=== PATIENT | female | born 1970 | race Caucasian/White ===

== ENCOUNTER → 2016-07-01 | Outpatient (CLI) | payer BC, MEDICAID ==
[~2016-07-01] MED LIST: AZITHROMYCIN250 MG PO; CEPHALEXIN500 M1 PO; CLARITIN 1010 MG/TAB PO; CLEOCIN HCL300 MG PO; DULERA1 ARO INH; FLAGYL500 MG PO; FLONASE NASAL S16 GM NS; LEVAQUIN 750MG750 M1 PO; NO HOME MEDICATIONS; NORCO 325 MG-51 TAB PO; NORCO 325 MG-7.1 TAB PO; PERCOCET 5/321 UDTAB PO; PHENERGAN W/CO120 ML PO; PREDNISONE20 MG PO; PROAIR HFA0.09 MG/AC IH; ROBAXIN 75750 MG/TAB PO; RT SPIRIVA18 MCG IH; TYLENOL 325MG325 MG PO; WELLBUTRIN SR150 M1 PO; ZANTAC 150MG T150 MG PO; ZOFRAN ODT4 MG PO
== END ==
LOC: MC.RAD 08:00
DX: D24.1 Benign neoplasm of right breast (principal)

== ENCOUNTER → 2016-11-29 | Outpatient (CLI) | payer BC, MEDICAID | LOC: MC.RAD 10:56 | DX: Z12.31 Encounter for screening mammogram for malignant neoplasm of breast (principal) ==

== ENCOUNTER → 2017-01-03 | Outpatient (CLI) | payer BC, MEDICAID | LOC: COL.RAD 10:23 | DX: Z09 Encounter for follow-up examination after completed treatment for conditions other than malignant neoplasm (principal); N76.0 Acute vaginitis; D72.829 Elevated white blood cell count, unspecified; Z90.710 Acquired absence of both cervix and uterus | CPT/HCPCS: Q9967 ==

== ENCOUNTER 2017-03-02 12:34 | Emergency (ER) | payer BC, MEDICAID ==
[~2017-03-02] VITALS: Ht 160 cm; Wt 104.5 kg
[~2017-03-02 12:34] MED LIST changes: -CLARITIN 1010 MG/TAB PO; -DULERA1 ARO INH; -FLAGYL500 MG PO; -FLONASE NASAL S16 GM NS; -LEVAQUIN 750MG750 M1 PO; -ZANTAC 150MG T150 MG PO; -ZOFRAN ODT4 MG PO
[2017-03-02 12:40] VITALS: TEMP 99.9
[2017-03-02 13:21] LABS: PH 7 (5-8); SQUAMOUS EPITHELIAL 0-2 /hpf; URINE APPEARANCE Clear; URINE BACTERIA None Seen /hpf; URINE BILIRUBIN Negative (NEGATIVE); URINE BLOOD Negative (NEGATIVE); URINE COLOR Straw; URINE GLUCOSE Negative (NEGATIVE); URINE KETONE Negative (NEGATIVE); URINE RBC 0-2 /hpf; URINE UROBILINOGEN Negative (NEGATIVE); URINE WBC 0-2 /hpf
[2017-03-02 14:30] LABS: BASO # 0.1 (0.0-0.2); BASO % 0.6 % (0.0-2.0); EOS # 0.2 (0.0-0.7); EOS % 1.3 % (0-4.0); GRAN # 8.9 (1.4-6.5); GRAN % 68.1 % (42.2-75.2); HEMATOCRIT 38.2 % (37.0-47.0); HEMOGLOBIN 12.3 g/dl (12.5-16.0); LYMPH # 2.4 (1.2-3.4); LYMPH % 18.5 % (20.0-51.0); MEAN CELL VOLUME 91 fl (80.0-100.0); MEAN CORPUSCULAR HEMOGLOBIN 29 pg (27.0-31.0); MEAN CORPUSCULAR HGB CONC 32 g/dl (33.0-37.0); MONO # 1.4 (0.1-0.6); PLATELET COUNT 257 K/mm3 (130-400); RED BLOOD COUNT 4.19 M/mm3 (4.10-5.30); REDCELL DISTRIBUTION WIDTH-CV 13.1 % (11.5-14.5)
[2017-03-02 14:42] LABS: ADJUSTED CALCIUM 8.7 mg/dL (8.4-10.2); ALBUMIN 4.3 gm/dL (3.5-5.0); BILIRUBIN,TOTAL 0.6 mg/dL (0.0-1.0); CALCIUM 8.9 mg/dL (8.4-10.2); CREATININE, serum 0.72 mg/dL (0.52-1.25); POTASSIUM 3.9 mmol/L (3.4-5.0); TOTAL PROTEIN 7.4 gm/dL (6.4-8.2)
[2017-03-02] MEDS ORDERED: ZANTAC 150MG T150 MG PO (14:52)
[2017-03-02 16:10] LABS: C-REACTIVE PROTEIN 5.4 mg/dL (0.0-0.9)
[2017-03-02] MEDS ORDERED: NORCO 325 MG-51 TAB PO (17:00)
[2017-03-02] MEDS ORDERED: ZOFRAN ODT4 MG PO (17:00)
[2017-03-02 17:27] VITALS: BP 110/58; PULSE 99
[2017-03-06] MEDS ORDERED: DULERA1 ARO INH (03:47)
[2017-03-06] MEDS ORDERED: CLARITIN 1010 MG/TAB PO (03:47)
[2017-03-06] MEDS ORDERED: FLONASE NASAL S16 GM NS (21:23)
[2017-03-07] MEDS ORDERED: FLAGYL500 MG PO (16:16)
[2017-03-07] MEDS ORDERED: LEVAQUIN 750MG750 M1 PO (16:17)
== END 2017-03-02 17:27 | disposition home or self-care (01) ==
LOC: COL.ER 12:34
PROVIDERS: Emergency Medicine
DX: R59.9 Enlarged lymph nodes, unspecified (principal); J44.9 Chronic obstructive pulmonary disease, unspecified; Z87.891 Personal history of nicotine dependence; Z90.710 Acquired absence of both cervix and uterus; Z98.51 Tubal ligation status
CPT/HCPCS: J3010; J7030; Q9967

== ENCOUNTER → 2018-10-05 | Outpatient (CLI) | payer BC, MEDICAID ==
[~2018-10-05] MED LIST changes: +CLARITIN 1010 MG/TAB PO; +DULERA1 ARO INH; +FLAGYL500 MG PO; +FLONASE NASAL S16 GM NS; +LEVAQUIN 750MG750 M1 PO; +ZANTAC 150MG T150 MG PO; +ZOFRAN ODT4 MG PO
== END ==
LOC: MC.RAD 09:06
DX: Z12.31 Encounter for screening mammogram for malignant neoplasm of breast (principal)

== ENCOUNTER 2018-11-10 09:10 | Outpatient (RCR) | payer BC, MEDICAID | END 2019-02-08 | disposition still patient (30) | LOC: WSC | DX: M25.562 Pain in left knee (principal) ==

== ENCOUNTER 2019-02-02 10:15 | Outpatient (RCR) | payer BC, MEDICAID | END 2019-02-16 09:51 | disposition home or self-care (01) | LOC: WSPT 10:15 | DX: M25.562 Pain in left knee (principal); Z96.652 Presence of left artificial knee joint ==

== ENCOUNTER 2019-05-13 10:00 | Outpatient (RCR) | payer BC | END 2019-06-30 | disposition home or self-care (01) | LOC: WSPT | DX: M25.572 Pain in left ankle and joints of left foot (principal) ==

== ENCOUNTER → 2020-06-26 | Outpatient (RCR) | payer BC | END | disposition home or self-care (01) | LOC: WSPT | DX: M25.511 Pain in right shoulder (principal); M25.572 Pain in left ankle and joints of left foot; M25.562 Pain in left knee ==

== ENCOUNTER 2020-07-26 10:15 | Outpatient (RCR) | payer BC | END 2020-09-27 | disposition home or self-care (01) | LOC: WSPT | DX: M25.562 Pain in left knee (principal); M25.511 Pain in right shoulder; M25.072 Hemarthrosis, left ankle; M79.601 Pain in right arm | CPT/HCPCS: G0283-GP ==

== ENCOUNTER 2022-02-23 14:56 | Emergency (ER) | payer SELFPAY ==
[~2022-02-23] VITALS: Ht 167.6 cm; Wt 97.7 kg
[2022-02-23 15:02] VITALS: TEMP 97.4
[2022-02-23 15:18] LABS: HEMATOCRIT 45.1 % (37.0-47.0); HEMOGLOBIN 14.9 g/dl (12.5-16.0); MEAN CELL VOLUME 93 fl (80.0-100.0); MEAN CORPUSCULAR HEMOGLOBIN 31 pg (27-31); MEAN CORPUSCULAR HGB CONC 33 g/dl (33.0-37.0); MEAN PLATELET VOLUME 9.2 fl (7.4-10.4); PLATELET COUNT 236 K/mm3 (130-400); RED BLOOD COUNT 4.86 M/mm3 (4.10-5.30); REDCELL DISTRIBUTION WIDTH-CV 12.5 % (11.5-14.5)
[2022-02-23 15:30] LABS: ALANINE AMINOTRANSFERASE 29 U/L (0-55); ALBUMIN 3.9 gm/dL (3.5-5.0); ALKALINE PHOSPHATASE 87 U/L (40-150); ANION GAP 12 mmol/L (7-16); AST,SGOT 31 U/L (5-34); BILIRUBIN,TOTAL 0.4 mg/dL (0.2-1.2); BLOOD UREA NITROGEN 7 mg/dL (10-20); C-REACTIVE PROTEIN 1.57 mg/dL (0.00-0.50); CALCIUM 9.2 mg/dL (8.4-10.2); CARBON DIOXIDE 25 mmol/L (22-29); CHLORIDE 104 mmol/L (98-107); CREATININE, serum 0.69 mg/dL (0.57-1.11); GLUCOSE 103 mg/dL (70-99); POTASSIUM 2.9 mmol/L (3.5-4.5); SODIUM 141 mmol/L (136-145); TOTAL PROTEIN 7.2 gm/dL (6.2-8.1)
[2022-02-23 15:36] LABS: TROPONIN-I < 0.010 ng/mL (0.00-0.033)
[2022-02-23 16:13] LABS: BAND 2 % (0-10); EOSINOPHIL 1 % (0-4); LYMPHOCYTE 51 % (20.0-51.0); NEUTROPHILS 38 % (42.0-75.2); PLATELET ESTIMATE NORMAL (NORMAL)
[2022-02-23] MEDS ORDERED: DOXYCYCLINE 10100 MG PO (16:29)
[2022-02-23 16:58] LABS: COLLECTION METHOD CLEAN CATCH
[2022-02-23 17:00] VITALS: BP 144/82; PULSE 66
[2022-02-23 17:04] LABS: PH 5.5 (5.0-8.5); URINE APPEARANCE Clear (CLEAR/HAZY); URINE BLOOD Negative (NEGATIVE); URINE COLOR Yellow (YELLOW); URINE GLUCOSE Negative (NEGATIVE); URINE KETONE Negative (NEGATIVE); URINE NITRATE Negative (NEGATIVE); URINE PROTEIN(semi-quant) Negative (NEGATIVE); URINE UROBILINOGEN 0.2 E.U/dL (0.2-1.0)
[2022-02-23 17:08] LABS: SQUAMOUS EPITHELIAL 0-2 /hpf (0-10); URINE BACTERIA None Seen /hpf (NONE SEEN); URINE RBC 0-2 /hpf (0-2)
== END 2022-02-23 17:07 | disposition home or self-care (01) ==
LOC: COL.ER 14:56
PROVIDERS: Family Medicine
DX: J20.9 Acute bronchitis, unspecified (principal); J30.2 Other seasonal allergic rhinitis; R78.0 Finding of alcohol in blood; Z91.040 Latex allergy status; Z88.0 Allergy status to penicillin; Z20.822 Contact with and (suspected) exposure to COVID-19
CPT/HCPCS: J7030